=== PATIENT | female | born 2000 | race Hispanic/Latino ===

== ENCOUNTER 2021-09-28 17:14 | Emergency (ER) | payer BC ==
[~2021-09-28] VITALS: Ht 162.6 cm; Wt 59.0 kg
[2021-09-28] MEDS ORDERED: IOPAMIDOL 370 MG/ML 200 ML INFUS..BTL INJ ONE (18:21)
[2021-09-28] MEDS ORDERED: SODIUM CHLORIDE 0.9% 50ML 50 ML ONE (18:22)
== END 2021-09-28 19:58 | disposition home or self-care (01) ==
LOC: FSED 17:35
DX: R10.30 Lower abdominal pain, unspecified (principal); K59.00 Constipation, unspecified; R16.1 Splenomegaly, not elsewhere classified
CPT/HCPCS: 74177; 80048; 80076; 81003; 85025; 99283; Q9967